=== PATIENT | male | born 1975 | race Caucasian/White ===

== ENCOUNTER → 2019-01-21 | Outpatient (CLI) | payer OTHER | END | disposition home or self-care (01) | LOC: RAD 13:16 | PROVIDERS: ATTEND Family Medicine | DX: M54.5 Low back pain (principal) | CPT/HCPCS: 72110 ==

== ENCOUNTER → 2019-02-02 | Outpatient (CLI) | payer OTHER ==
[~2019-02-02] MED LIST: OMNIPAQUE 350 MG/ML, 100ML BOTTLE ONE
== END | disposition home or self-care (01) ==
LOC: CFH 13:49
PROVIDERS: ATTEND Family Medicine
DX: J92.9 Pleural plaque without asbestos (principal)
CPT/HCPCS: 71260; Q9967